=== PATIENT | female | born 1980 | race Caucasian/White ===

== ENCOUNTER → 2021-05-24 | Day surgery (SDC) | payer OTHER ==
[~2021-05-24] VITALS: Ht 167.6 cm; Wt 124.7 kg
[~2021-05-24] MED LIST: DAILY VALUE1 EACH PO; KEPPRA750 MG PO; LOSARTAN-HCTZ1 EAC2 PO; NP THYROID60 MG PO; PROAIR HFA8.5 GM INH; PROBIOTIC1 EAC1 PO; SINGULAIR10 MG PO; SUDAFED30 MG PO; SYMBICORT 80-10.2 GM INH; VITAMIN D310 MC3 PO; XYZAL5 MG PO; YAZ 28 TABLET1 EACH PO
[2021-05-24 09:36] LABS: HCG (URINE) SCREEN NEGATIVE (NEGATIVE)
[2021-05-24 09:53] LABS: BASOPHIL 0.6 % (0-2); EOSINOPHIL 1.5 % (0-5); HCT 41.9 % (37.0-47.0); HGB 13.5 g/dl (12.5-16.0); LYMPHOCYTE 26.5 % (15-48); MCH 27.8 pg (25.0-31.0); MCHC 32.2 g/dL (32.0-36.0); MCV 86.4 fL (78.0-100.0); MONOCYTE 4.2 % (0-12); MPV 9.2 fL (6.0-9.5); NEUTROPHIL 66.8 % (41-80); NRBC 0; PLT 437 K/uL (150-400); RBC 4.85 M/uL (4.20-5.40); RDW 12.9 % (11.5-14.0); WBC 10.1 K/uL (4.0-10.5)
== END | disposition home or self-care (01) ==
LOC: FAS 05-17 11:30
PROVIDERS: Oral & Maxillofacial Surgery
DX: K01.1 Impacted teeth (principal); K02.9 Dental caries, unspecified; G40.909 Epilepsy, unspecified, not intractable, without status epilepticus; I10 Essential (primary) hypertension; E66.9 Obesity, unspecified; J45.909 Unspecified asthma, uncomplicated; Z88.1 Allergy status to other antibiotic agents
CPT/HCPCS: 36415; 84703; 85025; 93005; J1100; J1885; J2250; J2405; J2704; J3010; J7120